=== PATIENT | female | born 1940 | race Caucasian/White ===

== ENCOUNTER 2022-05-16 21:49 | Emergency (ER) | payer OTHER ==
--- NOTE | 2022-05-17 00:35 | EDPHYS ---
Physician Documentation [facility] Name: Noy Evans Age: 82 yrs Sex: Female : 1940 Arrival Date: 05/16/2022 Time: 21:54 Bed 19 Private MD: ED Physician Monster Dorantes HPI: 05/17 05:05 This 82 yrs old Female presents to ER via Wheelchair with complaints of Port Coming Out.kdr 05:00 Patient had a port placed in her right anterior chest wall about [address] adrianna Becerril. Since then the patient states that there the wound has been in a state of partial dehiscence. This morning around 10 AM she noted that the entire wound had dehisced. This left the port material was exposed. She has not contacted Dr. Jone Michael regard to this development. She denies any pain or any fever. Patient is otherwise in good health. She does not require any immediate intervention at this time.. Onset: The symptoms/episode began/occurred suddenly, today. Severity of symptoms: At their worst the symptoms were mild in the emergency department the symptoms are unchanged. The patient has not experienced similar symptoms in the past. The patient has not recently seen a physician. Patient states that there have been 2 holes where the wound had partially dehisced since shortly after the port was placed. She has had 1 treatment through this port otherwise she has not utilized it since installation. Historical: - Allergies: 05/16 21:59 PENICILLINS; hb 21:59 TETRACYCLINES; hb 21:59 hydrocodone; hb 21:59 oxycodone; hb 21:59 warfarin; hb 21:59 latex; hb - Immunization history:: Adult Immunizations unknown. - Social history:: Smoking status: unknown. ROS: 05/17 05:00 Constitutional: Negative for fever, chills, and weight loss, Eyes: Negative for injury, kdr pain, redness, and discharge, Neck: Negative for injury, pain, and swelling, Cardiovascular: Negative for chest pain, palpitations, and edema, Respiratory: Negative for shortness of breath, cough, wheezing, and pleuritic chest pain. Exam: 05:00 Constitutional: This is a well developed, well nourished patient who is awake, alert, kdr and in no acute distress. Head/Face: Normocephalic, atraumatic. Neck: Trachea midline, no thyromegaly or masses palpated, and no cervical lymphadenopathy. Supple, full range of motion without nuchal rigidity, or vertebral point tenderness. No Meningismus. 05:00 Chest/axilla: Inspection: There is an approximately 1 and half centimeter dehisced wound on the right anterior upper chest area. There is slight erythema around the edges of the wound but otherwise no purulent drainage or foul smell. The port and the connecting catheter are both visible through the opening.. Vital Signs: 05/16 21:57 BP 156 / 84; Pulse 98; Resp 16; Temp 98.2; Pulse Ox 100% on R/A; Weight 57.15 kg; hb Height 5 ft. 4 in. (162.56 cm); Pain 0/10; 22:43 BP 144 / 78; Pulse 93; Resp 16 S; Pulse Ox 98% on R/A; bb 23:42 BP 133 / 71; Pulse 84; Resp 16 S; Pulse Ox 96% on R/A; bb 05/17 01:04 BP 145 / 66; Pulse 88; Resp 16 S; Temp 98(O); Pulse Ox 99% on R/A; bb 05/16 21:57 Body Mass Index 21.63 (57.15 kg, 162.56 cm) hb MDM: 00:35 Patient medically screened. kdr 05:00 Data reviewed: vital signs, nurses notes, lab test result(s). Counseling: I had a kdr detailed discussion with the patient and/or guardian regarding: the historical points, exam findings, and any diagnostic results supporting the discharge/admit diagnosis, the need for outpatient follow up. Physician consultation: Ap Becerril MD regarding Removal of the catheter and port, and will see patient in ED, next week. ED course: I discussed the case with Dr. Becerril and informed him of the development with regard to the port that he had placed about 3 weeks ago. Initially he asked me to remove the port and catheter. On my reevaluation of the wound, the wound opening was not sufficient to allow the hub of the port to be expelled outside the chest wall. Further the port hub appeared to be sutured in place internally. Therefore it was not readily expressible through the opening to allow for easy removal. It appeared that I would have to revise the current opening significantly in order to get the hub and catheter out. I discussed this further with Dr. Becerril and he asked me to simply dress the wound start the patient on antibiotics and have her follow-up in his office on Wednesday which we did. Patient was discharged in good condition happy with the care provided the plan for discharge follow-up with Dr. Becerril on Wednesday. 05/17 00:33 Order name: Maria C. Order: Wet-to-dry dressing on wound ; Complete Time: 00:36 kdr Administered Medications: 00:43 Drug: Cipro (ciprofloxacin) 500 mg Route: PO; bb 01:05 Follow up: Response: No adverse reaction bb Disposition Summary: 05/17/22 00:35 Discharge Ordered Location: Home kdr Problem: new kdr Symptoms: have improved kdr Condition: Stable kdr Diagnosis - Wound dehiscence, right anterior chest wall kdr Followup: kdr - With: Private Physician - When: 2 - 3 days - Reason: Wound Recheck, If symptoms return, Further diagnostic work-up, Recheck today's complaints, Continuance of care, Re-evaluation by your physician Discharge Instructions: - Discharge Summary Sheet kdr - Wound Dehiscence, Quyn-ry-Haeb kdr Forms: - Medication Reconciliation Form kdr - Thank You Letter kdr - Antibiotic Education kdr Prescriptions: - Cipro 500 mg Oral Tablet - take 1 tablet by ORAL route every 12 hours for 7 days; 14 tablet; Refills: 0, kdr Product Selection Permitted Signatures: Monster Dorantes MD MD kdr Effie Bautista, RN RN bb Leisa Hernadez RN RN
--- NOTE | 2022-05-17 00:35 | ER ---
Nurse's Notes [facility] Name: Noy Evans Age: 82 yrs Sex: Female : 1940 Arrival Date: 05/16/2022 Time: 21:54 Bed 19 Private MD: Diagnosis: Wound dehiscence, right anterior chest wall Presentation: 05/16 21:57 Chief complaint: Had right upper chest port placed [address] Becerril, noticed hb site opened up today. Coronavirus screen: At this time, the client does not indicate any symptoms associated with coronavirus-19. Ebola Screen: No symptoms or risks identified at this time. Risk Assessment: Do you want to hurt yourself or someone else? Patient reports no desire to harm self or others. Onset of symptoms was May 16, 2022. 21:57 Method Of Arrival: Wheelchair hb 21:57 Acuity: CRISTIANO 3 hb 22:04 Initial Sepsis Screen: Does the patient meet any 2 criteria? No. Patient's initial ke1 sepsis screen is negative. Does the patient have a suspected source of infection? No. Patient's initial sepsis screen is negative. Triage Assessment: 22:05 General: Appears in no apparent distress. Behavior is appropriate for age. Pain: Denies ke1 pain. Historical: - Allergies: 21:59 PENICILLINS; hb 21:59 TETRACYCLINES; hb 21:59 hydrocodone; hb 21:59 oxycodone; hb 21:59 warfarin; hb 21:59 latex; hb - Immunization history:: Adult Immunizations unknown. - Social history:: Smoking status: unknown. Screenin:04 Abuse screen: Denies threats or abuse. Nutritional screening: No deficits noted. ke1 Tuberculosis screening: No symptoms or risk factors identified. Fall Risk No fall in past 12 months (0 pts). No secondary diagnosis (0 pts). No IV (0 pts). Ambulatory Aid- None/Bed Rest/Nurse Assist (0 pts). Gait- Normal/Bed Rest/Wheelchair (0 pts) Mental Status- Oriented to own ability (0 pts). Total Luong Fall Scale indicates No Risk (0-24 pts). Assessment: 22:41 General: Appears in no apparent distress. slender, Behavior is calm, cooperative, bb Reports she had a port placed to right side of chest by Dr Becerril and the wound has opened above the port. Neuro: Level of Consciousness is awake, alert, obeys commands, Oriented to person, place, time, situation. Cardiovascular: Capillary refill < 3 seconds Patient's skin is warm and dry. Respiratory: Respiratory effort is even, unlabored, Respiratory pattern is regular. GI: No signs and/or symptoms were reported involving the gastrointestinal system. Derm: Skin is pink, warm \T\ dry. dehiscence of wound above port to right side of chest with port visible no bleeding. Musculoskeletal: Circulation, motion, and sensation intact. 23:42 Reassessment: Patient is alert, oriented x 3, equal unlabored respirations, skin bb warm/dry/pink. 05/17 01:04 Reassessment: Patient is alert, oriented x 3, equal unlabored respirations, skin bb warm/dry/pink. pt verbalized understanding of and agrees to plan of care discharge instructions given pt assisted to exit via wheelchair by this RN accompanied by family. Vital Signs: 05/16 21:57 BP 156 / 84; Pulse 98; Resp 16; Temp 98.2; Pulse Ox 100% on R/A; Weight 57.15 kg; hb Height 5 ft. 4 in. (162.56 cm); Pain 0/10; 22:43 BP 144 / 78; Pulse 93; Resp 16 S; Pulse Ox 98% on R/A; bb 23:42 BP 133 / 71; Pulse 84; Resp 16 S; Pulse Ox 96% on R/A; bb 05/17 01:04 BP 145 / 66; Pulse 88; Resp 16 S; Temp 98(O); Pulse Ox 99% on R/A; bb 05/16 21:57 Body Mass Index 21.63 (57.15 kg, 162.56 cm) hb ED Course: 05/16 21:54 Patient arrived in ED. ja2 21:58 Monster Dorantes MD is Attending Physician. kdr 21:59 Triage completed. hb 21:59 Arm band placed on. hb 22:05 Bed in low position. Call light in reach. ke1 22:41 Effie Bautista, SHELLI is Primary Nurse. bb 05/17 01:05 Dressings: wet to dry dressing applied to wound on right side of chest covered with bb tegaderm. 01:06 No provider procedures requiring assistance completed. Patient did not have IV access bb during this emergency room visit. Administered Medications: 00:43 Drug: Cipro (ciprofloxacin) 500 mg Route: PO; bb 01:05 Follow up: Response: No adverse reaction bb Medication: 05/16 22:41 VIS not applicable for this client. bb Outcome: 05/17 00:35 Discharge ordered by . kdr 01:06 Discharged to home via wheelchair, with family. bb 01:06 Condition: stable 01:06 Discharge instructions given to patient, Instructed on discharge instructions, follow up and referral plans. medication usage, Demonstrated understanding of instructions, follow-up care, medications, Prescriptions given X 1. 01:06 Patient left the ED. bb Signatures: Monster Dorantes MD MD kdr Effie Bautista RN RN bb Leisa Hernadez, RN RN Jyotsna Mayfield Kouassi RN RN ke1 Olga Garrett, RN RN kb3 Corrections: (The following items were deleted from the chart) 05/16 22:03 21:57 Acuity: CRISTIANO 3 hb kb3 22:56 21:57 Acuity: CRISTIANO 4 kb3 hb
[2022-05-17] MEDS ORDERED: CIPROFLOXACIN HCL 500 MG TAB ONE (00:41)
[2022-05-17 01:13] VITALS: TEMP 98.2
[2022-05-17 01:25] VITALS: BP 133/71; O2SAT 96
== END 2022-05-17 01:06 | disposition home or self-care (01) ==
LOC: ER 21:49
DX: T81.30XA Disruption of wound, unspecified, initial encounter (principal); Z88.1 Allergy status to other antibiotic agents; Z88.5 Allergy status to narcotic agent; Z88.8 Allergy status to other drugs, medicaments and biological substances
CPT/HCPCS: 99283

== ENCOUNTER 2022-05-22 06:08 | Day surgery (SDC) | payer OTHER ==
[2022-05-20 16:02] LABS: Absolute Lymphocytes (CBC) 1.4 K/uL (0.7-4.9); Hematocrit 41.4 % (36.0-45.0); Lymphocytes % 15.5 % (15.3-44.8); MCV 101.8 fL (80-100); MPV 9.2 fL (7.6-11.3); RBC Red Blood Cell Count 4.07 M/uL (3.86-4.86)
[2022-05-22] MEDS ORDERED: Ringers Lactate 1,000 ML IV ONE (06:15)
[2022-05-22] MEDS ORDERED: CEFAZOLIN SODIUM 1 GM/VIAL ONE (06:15)
[2022-05-22] MEDS ORDERED: propofoL 200 MG/20 ML VIAL IV ONE (07:15)
[2022-05-22] MEDS ORDERED: LIDOCAINE 1% MPF 5 ML VIAL ONE (07:16)
[2022-05-22] MEDS ORDERED: FENTANYL CITR 100 MCG/2 ML ONE (07:16)
[2022-05-22] MEDS ORDERED: LIDOCAINE 1% MPF 30 ML VIAL ONE (07:18)
[2022-05-22] MEDS ORDERED: HEPARIN 5000 UNIT/ML 1 ML VIAL ONE (07:18)
[2022-05-22] MEDS ORDERED: NS 0.9% VIAL 20 ML ONE (07:18)
[2022-05-22] MEDS ORDERED: NS 0.9% VIAL 10 ML ONE (07:40)
[2022-05-22] MEDS ORDERED: ONDANSETRON 4 MG/2 ML VIAL ONE (08:20)
[2022-05-22] MEDS ORDERED: KETOROLAC 30 MG/ML INJ ONE (08:20)
[2022-05-22] MEDS ORDERED: Mastisol Adhesive Liq ONE (08:34)
--- NOTE | 2022-05-22 08:51 | P.OP ---
Date of Service: 05/22/22 Preop diagnosis: Endometrial cancer Postop diagnosis: Same Procedure performed: Left IJ Port-A-Cath placement, interpretation of intra operative fluoroscopy Surgeon: Ap Becerril MD Rn Family: JOSE Mcleod Estimated blood loss: Minimal Specimen: None Findings: Normal anatomy Anesthesia: General Complications: None Drain: None Fluids and blood products: Nonapplicable Disposition: Recovery room Operative note: Patient brought to the OR placed in the supine position. General anesthesia begun. Patient prepped and draped in the usual sterile fashion. Marcaine 0.5% infiltrated locally. 18-gauge needle used to access the left IJ vein. Guidewire passed. Position confirmed with fluoroscopy. 3 cm counterincision made on the left anterior chest. Pocket created. Tunneling device used to tunnel the catheter between the 2 wounds. Seldinger technique used. Tip of the catheter placed in the distal SVC. Catheter cut to appropriate size and attached to the Port-A-Cath device. Port-A-Cath device attached to the subcutaneous tissue with 3-0 Vicryl. 3-0 Vicryl used to close subcutaneous tissue. And 5-0 nylon used to close skin. Sterile dressing applied. Patient awakened and taken to recovery room in good general condition. Chest x-ray has been ordered. CC: Dr. Chavarria's office and Dr. Harrell's office
[2022-05-22] MEDS ORDERED: CODEINE 30MG/APAP 300MG TAB PO PRN (08:54)
--- NOTE | 2022-05-22 08:56 | RAD REPORT ---
EXAM DESCRIPTION: RAD - Fluoroscopy <1 Hour - 05/22/2022 8:40 am CLINICAL HISTORY: Venous catheter insertion. PORT A CATH COMPARISON: Fluoroscopy <1 Hour dated 04/22/2022 FINDINGS: Fluoroscopic imaging is submitted from placement of a venous catheter. Details of the pro cedure not available. Fluoroscopy time: 0.1 minutes.
--- NOTE | 2022-05-22 09:19 | RAD REPORT ---
EXAM DESCRIPTION: RAD - Chest Single View - 05/22/2022 9:11 am CLINICAL HISTORY: Status post Tesio catheter placement Chest pain. COMPARISON: Chest Single View dated 04/22/2022 FINDINGS: Portable technique limits examination quality. Left-sided venous catheter has its tip in the SVC. No pneumothorax is present. Lungs are clear. The h eart is normal in size. IMPRESSION: No postprocedure pneumothorax.
[2022-05-22 09:21] VITALS: O2SAT 97
[2022-05-22 10:14] VITALS: BP 165/66
[2022-05-22 10:22] VITALS: TEMP 97.7
== END 2022-05-22 10:15 | disposition home or self-care (01) ==
LOC: OR 06:08
PROVIDERS: ATTEND Surgery
PROC: 0JH60WZ Insertion of Totally Implantable Vascular Access Device into Chest Subcutaneous Tissue and Fascia, Open Approach (ICD-10-PCS; principal; 2022-05-22 07:30)
DX: C54.1 Malignant neoplasm of endometrium (principal); Z88.0 Allergy status to penicillin
CPT/HCPCS: 85025; 36415; 71045; 36561; J2704; J2001; J1644 ×2; J3010; A4216 ×2; J7120; J2405; J0690; C1788; 76000